=== PATIENT | female | born 1960 | race Caucasian/White ===

== ENCOUNTER 2017-04-06 17:35 | Emergency (ER) | payer OTHER ==
[~2017-04-06 17:35] MED LIST: BUPR-197 PO; CRUTMIS; NICO14DI TD
[2017-04-06 17:40] VITALS: BP 92/62; PULSE 66; RESP 16; TEMP 97.9; O2SAT 97
[2017-04-06] MEDS ORDERED: SODIUM CHLOR 0.9% 1000 ML INJ 1,000 ML IV ONE ×2 (17:44→19:30)
[2017-04-06] MEDS ORDERED: SODIUM CHLORIDE 0.9% FLUSH 10 ML FLUSH IVF PRN (17:45)
[2017-04-06 18:41] LABS: AUTOMATED NEUTROPHIL # 5.5 TH/MM3 (1.8-7.7); BASOPHIL # 0.1 TH/MM3 (0-0.2); BASOPHIL % 0.6 % (0.0-2.0); EOSINOPHIL # 0.4 TH/MM3 (0-0.4); EOSINOPHIL % 4.1 % (0.0-4.0); HEMATOCRIT 39.3 % (35.0-46.0); HEMO FLAGS DIFF FINAL; LYMPH % 27.2 % (9.0-44.0); LYMPHOCYTE # 2.5 TH/MM3 (1.0-4.8); MEAN CELL VOLUME 92.2 FL (80.0-100.0); MEAN CORPUSCULAR HEMOGLOBIN 31.2 PG (27.0-34.0); MEAN CORPUSCULAR HGB CONC 33.8 % (32.0-36.0); NEUT % 63.1 % (16.0-70.0); PLATELET COUNT 216 TH/MM3 (150-450); RED BLOOD COUNT 4.27 MIL/MM3 (4.00-5.30); RED CELL DISTRIBUTION WIDTH 12.3 % (11.6-17.2)
[2017-04-06 18:44] VITALS: BP 98/62; PULSE 64; RESP 16; O2SAT 99
[2017-04-06 18:48] LABS: POTASSIUM 3.2 MEQ/L (3.5-5.1)
[2017-04-06 18:51] LABS: BICARBONATE 26.7 MEQ/L (21.0-32.0); MAGNESIUM 2.1 MG/DL (1.5-2.5)
[2017-04-06 19:03] VITALS: BP 93/67; PULSE 68; RESP 16; O2SAT 99
[2017-04-06] MEDS ORDERED: POTASSIUM CHLORIDE 20 MEQ CONTROLLED RELEASE TAB PO ONE (19:15)
[2017-04-06 19:42] VITALS: BP_SYST 109; BP_SYST 112; BP_SYST 91; BP_DIAS 62; BP_DIAS 64; BP_DIAS 72; RESP 16
[2017-04-06 19:47] LABS: BLOOD, URINE TRACE (NEG); GLUCOSE,URINE NEG (NEG); KETONE, URINE NEG (NEG); NITRITE,URINE NEG (NEG); PH, URINE 5.5 (5.0-8.5)
[2017-04-06 19:52] LABS: URINE COLOR YELLOW (YELLW/STRAW)
[2017-04-06 19:53] LABS: BACTERIA, URINE MOD /hpf; COMMENT (UR) CULTURE INDICATED; CULTURE IF INDICATED CULTURE INDICATED; RBC, URINE 0-3 /hpf (0-3); SQUAMOUS EPITHELIAL CELL URINE > 8 /hpf (0-5)
[2017-04-06] MEDS ORDERED: BACT800T5 PO (19:58)
--- NOTE | 2017-04-06 19:58 | PD ---
HPI Chief Complaint: Syncope/Near-Syncope Time Seen by Provider: 17:44 Travel History International Travel<30 days: No Contact w/Intl Traveler<30days: No Traveled to known affect area: No History of Present Illness HPI Patient's 48 years old. She was socializing with a friend when she experienced a loss of consciousness and collapsed to the ground and was found in her kitchen leaning against cabinets. She drank about 5 beers today. She was outdoors in the sun around her pool for most of the day. She states she did not eat much if any food earlier in the day. She became quite nauseated and went inside and after leaning upon her kitchen sink she lost consciousness and fell to the ground. Her friend found her and called 911. The patient woke up with her friends screaming at her from above her. In the ER the patient complains of pain in the occipital scalp. She has no additional complaint. PFSH Past Medical History Depression: Yes Cancer: No Cardiovascular Problems: No Diabetes: No Endocrine: No Genitourinary: No Hepatitis: No Hiatal Hernia: No Immune Disorder: No Musculoskeletal: Yes (ARTHRITIS) Neurologic: No Psychiatric: No Respiratory: No Thyroid Disease: No Tetanus Vaccination: Unknown Influenza Vaccination: No ?: Not Menopausal: Yes Past Surgical History Body Medical Devices: BREAST Gynecologic Surgery: Yes ( BX ON OVARIES X 3 ) Other Surgery: Yes (BREAST AUGMENTATION) Social History Alcohol Use: Yes (BEER SOCIALLY) Tobacco Use: Yes Substance Use: No (DENIES) Allergies-Medications (Allergen,Severity, Reaction): Coded Allergies: No Known Allergies (Verified , 04/06/17) Reported Meds & Prescriptions Reported Meds & Active Scripts Active Bactrim DS (Sulfamethoxazole-Trimethoprim) 800-160 Mg Tab 1 Tab PO BID Review of Systems Except as stated in HPI: all other systems reviewed are Neg Physical Exam Narrative GENERAL: 56-year-old female pleasant well-nourished well-developed SKIN: Warm and dry. HEAD: Atraumatic. Normocephalic. There is no palpable trauma on the occipital scalp. EYES: Pupils equal and round. No scleral icterus. No injection or drainage. ENT: No nasal bleeding or discharge. Mucous membranes pink and moist. NECK: Trachea midline. No JVD. CARDIOVASCULAR: Regular rate and rhythm. RESPIRATORY: No accessory muscle use. Clear to auscultation. Breath sounds equal bilaterally. GASTROINTESTINAL: Abdomen soft, non-tender, nondistended. Hepatic and splenic margins not palpable. MUSCULOSKELETAL: Extremities without clubbing, cyanosis, or edema. No obvious deformities. NEUROLOGICAL: Awake and alert. No obvious cranial nerve deficits. Motor grossly within normal limits. Five out of 5 muscle strength in the arms and legs. Normal speech. PSYCHIATRIC: Appropriate mood and affect; insight and judgment normal. Data Data Last Documented VS Vital Signs Date Time Temp Pulse Resp B/P Pulse Ox O2 Delivery O2 Flow Rate FiO2 04/06/17 19:42 63 16 91/62 66 16 109/72 69 16 112/64 04/06/17 19:03 99 04/06/17 19:03 Room Air 04/06/17 17:40 97.9 Vital signs reviewed Orders Electrocardiogram (04/06/17 17:44) Complete Blood Count With Diff (04/06/17 17:44) Magnesium (Mg) (04/06/17 17:44) Urinalysis - C+S If Indicated (04/06/17 17:44) Ecg Monitoring (04/06/17 17:44) Iv Access Insert/Monitor (04/06/17 17:44) Oximetry (04/06/17 17:44) Sodium Chloride 0.9% Flush (Ns Flush) (04/06/17 17:45) Sodium Chlor 0.9% 1000 Ml Inj (Ns 1000 M (04/06/17 17:44) Basic Metabolic Panel (Bmp) (04/06/17 17:44) Alcohol (Ethanol) (04/06/17 17:44) Potassium Chloride (Kcl) (04/06/17 19:15) Sodium Chlor 0.9% 1000 Ml Inj (Ns 1000 M (04/06/17 19:30) Ct Brain W/O Iv Contrast(Rout) (04/06/17 19:29) Urine Culture (04/06/17 19:40) Sulfamet-Trimeth Ds 800-160 Mg (Bactrim (04/06/17 20:00) Acetaminophen (Tylenol) (04/06/17 20:00) Labs Laboratory Tests Test 04/06/17 04/06/17 18:05 19:40 White Blood Count 9.0 TH/MM3 Red Blood Count 4.27 MIL/MM3 Hemoglobin 13.3 GM/DL Hematocrit 39.3 % Mean Corpuscular Volume 92.2 FL Mean Corpuscular Hemoglobin 31.2 PG Mean Corpuscular Hemoglobin 33.8 % Concent Red Cell Distribution Width 12.3 % Platelet Count 216 TH/MM3 Mean Platelet Volume 9.4 FL Neutrophils (%) (Auto) 63.1 % Lymphocytes (%) (Auto) 27.2 % Monocytes (%) (Auto) 5.0 % Eosinophils (%) (Auto) 4.1 % Basophils (%) (Auto) 0.6 % Neutrophils # (Auto) 5.5 TH/MM3 Lymphocytes # (Auto) 2.5 TH/MM3 Monocytes # (Auto) 0.5 TH/MM3 Eosinophils # (Auto) 0.4 TH/MM3 Basophils # (Auto) 0.1 TH/MM3 CBC Comment DIFF FINAL Differential Comment Sodium Level 136 MEQ/L Potassium Level 3.2 MEQ/L Chloride Level 102 MEQ/L Carbon Dioxide Level 26.7 MEQ/L Anion Gap 7 MEQ/L Blood Urea Nitrogen 10 MG/DL Creatinine 0.67 MG/DL Estimat Glomerular Filtration 90 ML/MIN Rate Random Glucose 80 MG/DL Calcium Level 8.5 MG/DL Magnesium Level 2.1 MG/DL Ethyl Alcohol Level 51 MG/DL Urine Color YELLOW Urine Turbidity CLEAR Urine pH 5.5 Urine Specific [place] 1.015 Urine Protein NEG mg/dL Urine Glucose (UA) NEG mg/dL Urine Ketones NEG mg/dL Urine Occult Blood TRACE Urine Nitrite NEG Urine Bilirubin NEG Urine Leukocyte Esterase SMALL Urine RBC 0-3 /hpf Urine WBC 9-14 /hpf Urine Squamous Epithelial > 8 /hpf Cells Urine Bacteria MOD /hpf Microscopic Urinalysis Comment CULTURE INDICATED MDM Medical Decision Making Medical Screen Exam Complete: Yes Emergency Medical Condition: Yes Medical Record Reviewed: Yes Differential Diagnosis Vasovagal episode, syncope, seizure, anemia, arrhythmia, PE, intracranial hemorrhage Narrative Course CBC & BMP Diagram 04/06/17 18:05 Alcohol 51 Urinalysis shows a UTI EKG reveals a sinus rhythm with a rate of 63 normal axis intervals no preexcitation morphology Last [address] 04/06/171928 Signed Impressions: Service Date/Time: Thursday, April 06, 2017 19:41 - CONCLUSION: 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 William Clayton MD The patient is resting comfortably and feels better, is alert and in no distress. The patients results and examination findings were discussed. The repeat examination is unremarkable and benign. The history, exam, diagnostic testing, and current condition do not suggest any significant pathology to warrant further testing, continued ED treatment, admission, or surgical evaluation at this point. The vital signs have been stable. The patient does not have uncontrollable pain, intractable vomiting, or other significant symptoms. The patient's condition is stable and appropriate for discharge. The patient will pursue further outpatient evaluation with a primary care physician or other designated or consulting physician as indicated in the discharge instructions. The patient expressed understanding and was agreeable with this plan. Diagnosis Primary Impression: Syncope and collapse Additional Impressions: Cystitis Hypokalemia Alcohol use Osteoma of paranasal sinus Orthostatic hypotension Referrals: Keenan Wheatley MD 2 days Additional Instructions: You have a choice when it comes to health care, and we are glad that you chose [facility]. Hopefully, we have met your expectations on today's visit. You are welcome to return to [facility] at any time, as we are committed to meeting the health care needs of our community. Med/Other Pt SpecificInfo: Prescription(s) given Scripts Sulfamethoxazole-Trimethoprim (Bactrim DS)800-160 Mg Tab1 Tab PO BID #6 TAB Ref 1 Prov:Galo Bejarano MD 04/06/17 Disposition: 01 DISCHARGE HOME Condition: Stable Galo Bejarano MD Apr 06, 2017 19:58
[2017-04-06] MEDS ORDERED: SULFAMETHOXAZOLE-TRIMETHOPRIM DS 800-160 MG TAB PO ONE (20:00)
[2017-04-06] MEDS ORDERED: ACETAMINOPHEN 325 MG TAB PO ONE (20:00)
--- NOTE | 2017-04-06 20:03 | RADRPT ---
EXAM DATE/TIME: 04/06/2017 19:41 [facility] COMPARISON: No previous studies available for comparison. INDICATIONS : Syncopal episode today . RADIATION DOSE: 62.04 CTDIvol (mGy) MEDICAL HISTORY : None SURGICAL HISTORY : None. ENCOUNTER: Initial ACUITY: 1 day PAIN SCALE: 2/10 LOCATION: cranial TECHNIQUE: Multiple contiguous axial images were obtained of the head. Using automated exposure control and adjustment of the mA and/or kV according to patient size, radiation dose was kept as low as reasonably achievable to obtain optimal diagnostic quality images. DICOM format image data is av ailable electronically for review and comparison. FINDINGS: There is no evidence for intracranial hemorrhage, mass effect, mass lesions, edema, or extra-axial fl uid collections. The visualized bony structures appear intact. The ventricles are normal size for t he patient's age. There are no signs of acute infarction for technique. An approximate 1.2 cm osteom a is present in the right frontal sinus. CONCLUSION: 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 William Clayton MD on April 06, 2017 at 20:00 Board Certified Radiologist. This report was verified electronically.
[2017-04-06 21:02] VITALS: BP 102/67
--- NOTE | 2017-04-07 16:10 | EKG ---
Date Performed: 04/06/2017 Time Performed: 18:24:25 PTAGE: 56 years EKG: Sinus rhythm WITH SINUS ARRHYTHMIA Marked baseline artifact Since previous tracing, no significant change noted N ORMAL ECG PREVIOUS TRACING : 02/09/2014 08.50 DOCTOR: Daniel Renteria Interpretating Date/Time 04/07/2017 16:08:48
== END 2017-04-06 21:03 | disposition home or self-care (01) ==
LOC: PHED 17:35
DX: I95.1 Orthostatic hypotension (principal); N30.90 Cystitis, unspecified without hematuria; B96.89 Other specified bacterial agents as the cause of diseases classified elsewhere; E87.6 Hypokalemia; D16.9 Benign neoplasm of bone and articular cartilage, unspecified; Z72.0 Tobacco use
CPT/HCPCS: 70450; 80048; 80307; 81001; 83735; 85025; 87086; 93005; 96360; 96361; 99285; J7030